=== PATIENT | female | born 1950 | race Caucasian/White ===

== ENCOUNTER 2016-12-23 05:54 | Day surgery (SDC) | payer MEDICARE ==
[~2016-12-23] VITALS: Ht 165.1 cm; Wt 64.0 kg
[~2016-12-23 05:54] MED LIST: BROVANA15 MCG/2 M; CELEXA40 M1 PO; DILAUDID2 MG PO; ESTRACE1 MG PO; LASIX 20 MG TAB20 MG PO; MUCINEX600 MG PO; NYAMYC100000 UNI; OMEPRAZOLE; PRAMIPEXOLE0.25 MG PO; PULMICORT0.5MG/2ML IN; SINGULAIR10 MG PO; SODI; XOPENEX CO1.25 MG/0.; ZYRTEC ALLERGY10 MG PO
[2016-12-23 07:47] VITALS: BP 122/61
== END 2016-12-23 08:29 | disposition home or self-care (01) ==
LOC: ORM 05:54
PROVIDERS: ATTEND Anesthesiology Pain Medicine
PROC: 3E0U33Z Introduction of Anti-inflammatory into Joints, Percutaneous Approach (ICD-10-PCS; principal; 2016-12-23)
PROC: 3E0U3BZ Introduction of Anesthetic Agent into Joints, Percutaneous Approach (ICD-10-PCS; 2016-12-23)
PROC: 3E0T33Z Introduction of Anti-inflammatory into Peripheral Nerves and Plexi, Percutaneous Approach (ICD-10-PCS; 2016-12-23)
PROC: 3E0T3BZ Introduction of Anesthetic Agent into Peripheral Nerves and Plexi, Percutaneous Approach (ICD-10-PCS; 2016-12-23)
DX: M54.5 Low back pain (principal); M12.9 Arthropathy, unspecified

== ENCOUNTER 2022-03-27 15:45 | Emergency (ER) | payer MEDICARE ==
[~2022-03-27] VITALS: Ht 157.5 cm; Wt 58.9 kg
[2022-03-27 16:07] VITALS: BP 148/68
[2022-03-27 16:30] VITALS: BP 155/71
[2022-03-27 17:00] VITALS: BP 135/65
== END 2022-03-27 17:20 | disposition home or self-care (01) ==
LOC: ED 15:45
DX: S51.812A Laceration without foreign body of left forearm, initial encounter (principal); W23.0XXA Caught, crushed, jammed, or pinched between moving objects, initial encounter; Y93.89 Activity, other specified; Y92.009 Unspecified place in unspecified non-institutional (private) residence as the place of occurrence of the external cause